=== PATIENT | female | born 1945 | race Caucasian/White ===

== ENCOUNTER → 2018-12-27 13:31 | Outpatient (CLI) | payer MEDICARE ==
[2015-05-12 07:16] VITALS: BMI 21.0
[~2018-12-27 13:31] MED LIST: LEVOXYL50 MCG PO; METOPROLOL TART50 MG PO
== END | disposition home or self-care (01) ==
LOC: D.NM 13:31
PROVIDERS: ATTEND Nurse Practitioner Family
DX: R93.429 Abnormal radiologic findings on diagnostic imaging of unspecified kidney (principal)